=== PATIENT | male | born 1990 | race Caucasian/White ===

== ENCOUNTER 2016-07-29 04:12 | Emergency (ER) | payer BC ==
[2016-07-29 04:19] VITALS: RESP 22; TEMP 97.4
--- NOTE | 2016-07-29 04:21 | PDOC ---
Upper Respiratory HPI - General Chief Complaint: General Medical Stated Complaint: Increase cough/congestion Date Seen by Provider: 07/29/16 Time Seen by Provider: 04:20 Exam Limitations: POSITIVE: No limitations Nurse's Notes Reviewed & Considered: Yes - History of Present Illness Initial Comments: Patient is a 26 y/o male who presents with cough. Patient reports that symptoms have begun a few days prior. Coughing. Non-productive. Was seen by PCP and placed on amoxicillin. Patient reports that symptoms were worse this evening. Cough was severe. Persistent. Intermittent fevers up to 102. No nausea or vomiting. He does have a headache. Diffuse. Moderate in severity. No exacerbating or relieving factors. - Patient Home Medications Home Medications: Home Medications Hydroxyzine Pamoate [Vistaril] 50 mg PO Q4-6H PRN #60 cap 05/18/16 Pantoprazole Sodium [Protonix] 1 tab PO DAILY #30 tab 05/18/16 Albuterol Neb Soln 0.083% 1 vial INH Q4-6HRSPRN #100 vial 07/26/16 Amoxicillin/Potassium Clav [Augmentin 875-125 Tablet] 1 tab PO BID #20 tab 07/26 Guaifenesin/Codeine Phosphate [Codeine-Guaifen 10-100 mg/5 ml] 5 - 10 ml PO Q6HR PRN #120 liquid 07/29/16 - Patient Allergies Allergies/Adverse Reactions: Allergies Allergy/AdvReac Type Severity Reaction Status Date / Time No Known Allergies Allergy Verified 07/29/16 04:15 Past Medical History - heen HEENT History: Denies History Cardiovascular History: Denies History Respiratory History: Denies History Gastrointestinal History: GERD Genitourinary History: Denies History Endocrine History: Denies History Musculoskeletal History: Back Pain Neurological History: Denies History Blood Disorders: Denies History Psychiatric History: Depression History of Sexually Transmitted Diseases: No Male Reproductive History: Denies History Cancer History: Denies History In Past Year Been Physically Harmed or Verbally Threatened: No History of MDRO: No History of Other Communicable Diseases: No Tobacco Use: Never Smoker Alcohol Use: None Substance Use Type: None Previous Surgical History: Yes Type / Date of Surgery: TONSILS, FB REMOVAL Anesthesia Reactions: No Malignant Hyperthermia: No Significant Family History: No pertinent family hx Past Medical History Reviewed: Reviewed - Changes Made ROS - Limitations ROS Limitations: No Limitations Constitution: REPORTS: Chills, Fever Cardiovascular: DENIES: Chest Pain Respiratory: REPORTS: Cough Non Productive Neurological: REPORTS: Headache Gastrointestinal: REPORTS: Denies GI Symptoms Endocrine: REPORTS: Denies Symptoms Musculoskeletal: REPORTS: Muscle Aches Genitourinary: REPORTS: Denies Symptoms Eyes: REPORTS: Denies Symptoms ENT: REPORTS: Denies Symptoms Skin: REPORTS: Denies Skin Symptoms Lympathic: REPORTS: Denies Lympathic Symptoms Upper Respiratory/Fever Exam - General Appearance General Appearance: REPORTS: Alert, No Acute Distress - HEENT HEENT: POSITIVE: Head Inspection Nml - Neck Neck: REPORTS: Normal Inspection, Supple - Respiratory Respiratory: REPORTS: Other (coughing. Otherwise clear lungs.) - Abdomen Abdomen: Soft: (All Quadrants), Normal Bowel Sounds: (All Quadrants), Denies Tenderness: (All Quadrants), No Splenomegaly: (All Quadrants), No Hepatomegaly: (All Quadrants) - Cardiovascular Cardiovascular: REPORTS: Other (Slight tachycardia.) - Skin Skin: REPORTS: Intact, Warm, Diaphoresis - Extremities Extremity: Non-Tender: (LLE), (RLE), Normal ROM: (RLE), (LLE), Normal Inspection : (RLE), (LLE) - Neurological / Psychological Neurological: POSITIVE: Affect Apporpriate Upper Resp/Fever Progress - Results Reviewed by me Xrays/CTs/US Reviewed by me: Yes Lab Results Reviewed: Yes - Patient's Progress School/Work Release Addressed: POSITIVE: Yes MDM / ED Course: Panchito is a 26-year-old male who presents to the emergency department with increasing cough. Vital signs Notable for slight tachycardia. Examination demonstrates well-appearing male who is coughing. Differential diagnosis includes but is not limited to viral syndrome, bronchitis, pneumonia, influenza. Rapid influenza was negative here. Chest x-ray was obtained which demonstrates no obvious infiltrate pending radiology over read. Given signs and symptoms I suspect that most likely this is a viral syndrome. Recommended continued supportive care and follow-up primary care as needed. We'll prescribe patient cough medication to help mitigate symptoms. Patient Care Time - Estimated PCT Patient Care Time (In Minutes): 15 Vital Signs - Recent Vital Signs Vital Signs: Vital Signs (Last 8 hours) Temp Pulse Resp BP Pulse Ox 07/29/16 04:15 97.4 F 110 H 22 109/61 94 - VS Reviewed Vital Signs Reviewed: Yes Discharge Clinical Impression: Cough Condition: Stable Prescriptions / Orders: Guaifenesin/Codeine Phosphate [Codeine-Guaifen 10-100 mg/5 ml] 5 - 10 ml PO Q6HR PRN #120 liquid PRN Reason: Cough Patient Instructions Given at Discharge: Acute Bronchitis (ED) Additional Instructions: Thank you for coming to the ER. This cough is likely caused by a virus. Please use acetaminophen and ibuprofen as needed for headaches and body aches. Please make sure that you drink plenty of fluids. Use cough medication as needed. Return to the emergency department for any worsening symptoms. Follow up with your primary care provider if not feeling better in one week. Follow Up With: JUAN FRANCIS [Primary Care Provider] -
--- NOTE | 2016-07-29 04:45 | DI ---
HISTORY: Cough. COMPARISON: None available. FINDINGS: Frontal and lateral views the chest are submitted. There is no effusion, consolidation, o r pneumothorax. The cardiomediastinal silhouette is within normal limits. The osseous structures ar e normal for age. IMPRESSION: 1. No acute cardiopulmonary abnormality.
== END 2016-07-29 04:54 | disposition home or self-care (01) ==
LOC: ER 04:12
DX: R05 Cough (principal); R50.9 Fever, unspecified; R51 Headache
CPT/HCPCS: 71020; 87804; 99283

== ENCOUNTER → 2016-08-02 | Outpatient (CLI) | payer BC ==
[2016-08-02 08:25] LABS: BASOPHILS # (AUTO) 0.07 10*3/UL; BASOPHILS % (AUTO) 0.6 % (0-1); HEMATOCRIT 46.5 % (42.0-52.0); HEMOGLOBIN 15.9 g/dL (14.0-18.0); IMM GRAN % (AUTO) 0.3 % (0-5); IMM GRAN# (AUTO) 0.04 10*3/UL; LYMPHOCYTES # (AUTO) 2.76 10*3/uL; MEAN CORPUSCULAR HEMOGLOBIN 29.8 PG (27-31); MEAN CORPUSCULAR HGB CONC 34.2 g/dL (33-37); MEAN PLATELET VOLUME 11.5 FL (7.4-12.2); MONOCYTES # (AUTO) 0.92 10*3/UL (0.3-0.8); NEUTROPHILS # (AUTO) 7.35 10*3/UL; NEUTROPHILS % (AUTO) 64.1 % (50-80); RDW COEFFICIENT OF VARIATION 13.3 % (11.5-14.5); RED BLOOD COUNT 5.34 10^6/uL (4.70-6.10); WHITE BLOOD COUNT 11.48 10^3/uL (4.8-10.8)
[2016-08-02 08:28] LABS: PLATELET MORPHOLOGY COMMENT NORMAL MORPHOLOGY (NORM)
[2016-08-02 08:46] LABS: ASPARTATE AMINO TRANSFERASE 24 IU/L (21-57); BILIRUBIN,TOTAL 0.6 mg/dL (0.3-1.2); BLOOD UREA NITROGEN 11 mg/dL (7-22); BUN/CREATININE RATIO 12.22 (6-20); C-REACTIVE PROTEIN 1.1 mg/dL (0.0-0.9); CALCIUM 10.1 mg/dL (8.7-10.7); CHLORIDE 102 meq/L (98-112); CREATININE 0.9 mg/dL (0.70-1.50); EST GLOMERULAR FILTRATION > 60 (>60 ml/min/1.73m(2)); GLUCOSE 98 mg/dL (78-110); POTASSIUM 4.1 meq/L (3.8-5.2); SODIUM 141 meq/L (135-145); TOTAL PROTEIN 7.8 g/dL (6.1-8.0)
--- NOTE | 2016-08-02 09:50 | DI ---
PA /LATERAL CHEST X-RAY, 08/02/2016 9:01 AM : Clinical History: Cough. Previous Exam: 07/29/2016. There is no acute soft tissue or bony abnormality. Heart size is normal. Lungs are clear. Mediastinal structures are normal. There are no pulmonary nodules. Reading: Normal chest x-ray. There has been no interval change.
== END ==
LOC: MOB LAB 08:01
PROVIDERS: ATTEND Physician Assistant
DX: R05 Cough (principal); R06.02 Shortness of breath
CPT/HCPCS: 36415; 71020; 80053; 85025; 85379; 86140